=== PATIENT | female | born 1965 | race Caucasian/White ===

== ENCOUNTER 2021-07-30 17:49 | Emergency (ER) | payer MEDICAID ==
[~2021-07-30] VITALS: Ht 162.6 cm; Wt 54.5 kg
[2021-07-30] MEDS ORDERED: KETOROLAC TROMETHAMINE 30 MG/ML VIAL IM ONE (20:15)
[2021-07-30] MEDS ORDERED: LIDOCAINE 5% TRANSDERMAL PATCH TD ONE (20:15)
[2021-07-30] MEDS ORDERED: IBUP-2070 PO (22:03)
[2021-07-30 22:14] VITALS: BP 125/83
== END 2021-07-30 22:16 | disposition home or self-care (01) ==
LOC: EMS 17:57
DX: M75.31 Calcific tendinitis of right shoulder (principal)
CPT/HCPCS: 73030; 96372; 99283; J1885

== ENCOUNTER 2024-02-08 05:52 | Day surgery (SDC) | payer OTHER ==
[~2024-02-08] VITALS: Ht 170.2 cm; Wt 100.0 kg
[~2024-02-08 05:52] MED LIST: DICL100G60 TP; HYDR25TA2 PO; LOSA-382 PO; PANT-31 PO; PIOG30TA10 PO; RINGERS SOLUTION,LACTATED 1,000 ML IV ONE; SEMA0.258 IM
[2024-02-08 06:45] LABS: GLUCOMETER DEV NAME(LOC) SDS.; GLUCOSE,POINT OF CARE 116 MG/DL (70-110)
[2024-02-08] MEDS ORDERED: CeFAZolin 2 GM/DEXTROSE 50 ML IV ONE (06:48)
[2024-02-08] MEDS: RINGERS SOLUTION,LACTATED 1,000 ML IV ONE (06:51)
[2024-02-08] MEDS: CeFAZolin 2 GM/DEXTROSE 50 ML IV ONE (06:55)
[2024-02-08] MEDS: ETHYL ALCOHOL 62% ANTISEPTIC NASAL SANITIZER 0.6 ML AMPUL NASAL ONE (06:58)
[2024-02-08] MEDS: CHLORHEXIDINE GLUCONATE 2% TOWELETTE [2'S/6'S] TP ONE (06:59)
[2024-02-08] MEDS ORDERED: MUPIROCIN CALCIUM 2% 22 GM OINTMENT ONE (07:11)
[2024-02-08] MEDS: LIDOCAINE/PF 2% 5 ML VIAL ONE (07:42)
[2024-02-08] MEDS: BUPIVACAINE HCL/PF 0.5% 10 ML VIAL ONE (07:42)
[2024-02-08] MEDS ORDERED: FentaNYL CITRATE PF 100 MCG/2 ML VIAL IVP PRN (08:00)
[2024-02-08] MEDS ORDERED: OXYGEN THERAPY IH SCH (08:00)
[2024-02-08] MEDS ORDERED: HYDROmorphone HCL 2 MG/ML SYRINGE IVP PRN (08:00)
[2024-02-08] MEDS ORDERED: HYDROCODONE/ACETAMINOPHEN 5-325 MG TABLET PO ONE (08:45)
[2024-02-08] MEDS ORDERED: PROPOFOL 1% 20 ML VIAL IVP ONE (12:00)
[2024-02-08] MEDS ORDERED: MIDAZOLAM HCL 2 MG/2 ML VIAL IVP ONE (12:00)
[2024-02-08] MEDS ORDERED: ONDANSETRON HCL 4 MG/2 ML VIAL IVP ONE (12:00)
[2024-02-08] MEDS ORDERED: PROPOFOL 1% ISO-OSM 1000 MG/100 ML BOTTLE IV ONE (12:00)
== END 2024-02-08 09:50 | disposition home or self-care (01) ==
LOC: EDBD 05:52 → SURGERY 05:52
PROVIDERS: ATTEND Orthopaedic Surgery
DX: M65.341 Trigger finger, right ring finger (principal); M24.841 Other specific joint derangements of right hand, not elsewhere classified; I10 Essential (primary) hypertension; E11.9 Type 2 diabetes mellitus without complications; K21.9 Gastro-esophageal reflux disease without esophagitis; M19.90 Unspecified osteoarthritis, unspecified site; Z79.899 Other long term (current) drug therapy; Z90.49 Acquired absence of other specified parts of digestive tract; Z90.710 Acquired absence of both cervix and uterus; Z98.891 History of uterine scar from previous surgery; Z98.890 Other specified postprocedural states; Z88.0 Allergy status to penicillin; Z83.3 Family history of diabetes mellitus; Z82.49 Family history of ischemic heart disease and other diseases of the circulatory system
CPT/HCPCS: 26055; 82962; 93005; J3490 ×2; J2704 ×2; J2250; J2405; J7120; J0690